=== PATIENT | female | born 1995 | race Caucasian/White ===

== ENCOUNTER → 2017-02-03 | Outpatient (CLI) | payer OTHER | LOC: MHCPAIN 11:23 | DX: G89.29 Other chronic pain (principal); M54.16 Radiculopathy, lumbar region; M53.3 Sacrococcygeal disorders, not elsewhere classified; G57.00 Lesion of sciatic nerve, unspecified lower limb | CPT/HCPCS: G0463 ==

== ENCOUNTER → 2017-02-11 | Outpatient (CLI) | payer OTHER | LOC: MHCPAIN 11:57 | DX: G57.03 Lesion of sciatic nerve, bilateral lower limbs (principal) | CPT/HCPCS: J1100 ==

== ENCOUNTER → 2017-03-11 | Outpatient (CLI) | payer OTHER | LOC: MHCPAIN 10:39 | DX: G89.29 Other chronic pain (principal); M54.16 Radiculopathy, lumbar region | CPT/HCPCS: G0463 ==

== ENCOUNTER → 2017-03-19 | Outpatient (CLI) | payer OTHER | LOC: MHCPAIN 14:10 | DX: G57.02 Lesion of sciatic nerve, left lower limb (principal) | CPT/HCPCS: J0585 ==